=== PATIENT | male | born 1990 | race Caucasian/White ===

== ENCOUNTER → 2018-09-26 | Outpatient (CLI) | payer OTHER ==
[~2018-09-26] MED LIST: DOXYCYCLINE 10100 MG PO; NORCO 5-325 TA1 EACH PO
--- NOTE | 2018-09-30 20:17 | SLEEP ---
[address] [address] SLEEP STUDY REPORT Name: FELIPE LUCIANO Room: [facility]#: [id number] Admission: 09/26/18 Attend Phys: MIKAYLA Santo Discharge: Date of : 89 Report #: [id number] THIS REPORT FOR: //name// CC: FAM unknown Lauren Arriola [facility] This study has been reviewed in its entirety by a board certified sleep specialist DATE OF SERVICE: 09/26/2018 SLEEP STUDY REFERRING PHYSICIAN: MIKAYLA Santo The patient is a 28-year-old who weighs 302 pounds with a BMI of 41. The patient's [place] score was 2. The patient underwent a split-night study performed at [facility]. During the night study, the patient spent 485 minutes in bed and slept for 390 minutes with a sleep efficiency of 80%. Sleep latency was 27.2 minutes with a REM latency of 91.2 minutes. Overall, sleep architecture showed normal stage 1 and stage 2 sleep, increased N3 sleep and increased REM sleep. During the initial diagnostic portion of the study, the patient slept for 237 minutes. During that time, there were 5 central apneas, no mixed or obstructive apneas, and 57 hypopneas. The patient's apnea-hypopnea index was 15.7 per hour with a REM index of 24 per hour and a supine index of 0 per hour due to lack of supine sleep during the diagnostic portion of the study. EKG monitoring revealed an average heart rate of 55 beats per minute. No sustained arrhythmias observed. Mild PLMs were seen at an index of 8.6 per hour and 4.8 per hour caused EEG arousals. Nocturnal oximetry study revealed an average oxygen saturation of 95% with a lowest of 86%. Only 0.7 minutes were spent in oxygen saturation of less than 89%. The patient met the criteria for CPAP initiation. It was started at 8 cm of water due to patient's comfort and titrated up to 15 cm of water. At the final pressure, the patient slept for 59.3 minutes. The patient had supine, as well as REM sleep. Total REM sleep recorded was 27.6 minutes. The patient's AHI was reduced to 1 per hour and oxygen saturation remained above 93%. [place] [address] SLEEP STUDY REPORT Name: FELIPE LUCIANO Room: [facility]#: [id number] Admission: 09/26/18 Attend Phys: MIKAYLA Santo Discharge: Date of : 89 Report #: [id number] IMPRESSION: 1. Moderate sleep apnea-hypopnea syndrome at an AHI of 15.7 per hour. 2. No clinically significant nocturnal hypoxia. 3. Mild PLMs. RECOMMENDATIONS: 1. CPAP at 15 cm water completely eliminated the patient's sleep apnea and should be used on a nightly basis. 2. Follow up in 4-6 weeks to assess compliance with CPAP and to document clinical improvement. 3. Weight loss is strongly advised. 4. Avoid [employer] depressants. 5. Cautioned regarding driving until symptoms of sleep apnea resolve with the use of CPAP. 6. PLM does not need to be treated. <ELECTRONICALLY SIGNED> By: Wero Hunt MD 09/30/182016 [id number] Hunt MD /nt
== END ==
LOC: M.SLEEPLAB 08:00
DX: G47.30 Sleep apnea, unspecified (principal); R06.83 Snoring; G47.61 Periodic limb movement disorder; Z68.41 Body mass index [BMI] 40.0-44.9, adult